=== PATIENT | female | born 1945 | race Caucasian/White ===

== ENCOUNTER 2025-05-07 09:20 | Outpatient (CLI) | payer MEDICARE, MEDICAID, SELFPAY ==
[2025-05-07 09:35] LABS: Coronavirus 19, PCR Not Detected (NotDetected); Influenza A, PCR Not Detected (NotDetected); Influenza B, PCR Not Detected (NotDetected)
== END 2025-05-07 23:59 | disposition home or self-care (01) ==
LOC: LAB 09:21
PROVIDERS: PCP Family Medicine; Visit Provider Nurse Practitioner Family
DX: R05.2 Subacute cough (principal)
CPT/HCPCS: 87631

== ENCOUNTER 2025-05-13 10:52 | Outpatient (CLI) | payer MEDICARE, MEDICAID, SELFPAY ==
--- NOTE | 2025-05-13 10:57 | XR_ITS ---
FINAL REPORT TECHNIQUE: 3 views right foot CLINICAL HISTORY: right 5th metatarsal fx COMPARISON: None FINDINGS: RIGHT FOOT: Three views show no gross acute bony abnormality. There is severe osteopenia noted. Mild diffuse degenerative changes noted. IMPRESSION: No gross acute bony abnormality, although exam is markedly limited by severe osteopenia. If clinical suspicion is high for fracture, recommend MRI for further evaluation. Reviewed, Interpreted and Dictated by Cydney Law MD Transcribed by Tressa Dove Authenticated and [facility]
--- OUTSIDE RECORDS SUMMARY | 2025-05-13 11:09 | XMS_ITS | Clinical Summary ---
Author Organization [facility] Address [address] [place] [address] [address] [place] [address] Phone Care Team Providers Care Agency Trainer Name Role Phone Unavailable Unavailable Conditions or Problems No information available. Medications No information available. Medications Administered No information available. Allergies, Adverse Reactions, Alerts No information available. Results No information available. Plan of Care No information available. Procedures No information available. Vital Signs No information available. Immunizations No information available. Advance Directives No information available.
== END 2025-05-13 23:59 | disposition home or self-care (01) ==
LOC: RAD 10:55
PROVIDERS: PCP Family Medicine; Visit Provider Physician Assistant Surgical
DX: M85.871 Other specified disorders of bone density and structure, right ankle and foot (principal); M19.071 Primary osteoarthritis, right ankle and foot
CPT/HCPCS: 73630

== ENCOUNTER 2025-05-19 15:29 | Emergency (ER) | payer MEDICARE, MEDICAID, SELFPAY ==
[2025-05-19 15:16] VITALS: BP 130/80; PULSE 74; RESP 15; TEMP 36.7; O2SAT 96; BMI 23.7
--- NOTE | 2025-05-19 15:36 | HMH.EDGENADL ---
Discharge Plan Disposition Patient Disposition: Home, Self-Care Prescriptions Prescriptions: No Action trazodone 50 mg tablet 25 mg PO DAILY levetiracetam [Keppra] 500 mg tablet 500 mg PO BID olanzapine 5 mg tablet 5 mg PO BID olanzapine 2.5 mg tablet 2.5 mg PO BID PRN pyridoxine (vitamin B6) 100 mg tablet 100 mg PO DAILY polyethylene glycol 3350 [Miralax] 17 gram/dose powder 17 g PO DAILY nifedipine 60 mg tablet extended release 60 mg PO DAILY sertraline [Zoloft] 50 mg tablet 50 mg PO DAILY apixaban 5 mg tablet 5 mg PO BID magnesium oxide 400 mg magnesium tablet 400 mg PO DAILY Referrals Follow up/Referrals: Jamal Wolfe MD [Primary Care Provider, Family Practice] - See instructions Activity Restrictions/Add. Instructions Additional Instructions/Restrictions: No evidence of any injury therefore no emergent workup was indicated today. Please return with any significant worsening of your symptoms or other development of pain etc. Clinical Impressions Clinical Impression: Encounter for medical screening examination Print Language Print Language: Dutch Discharge ED Provider: Trevin Hubbard General Adult HPI General Chief complaint: Fall Stated complaint: fall Time Seen by Provider: 05/19/25 15:29 Mode of Arrival: EMS Source of Information: EMS Description of Symptoms (Recalled from ER Triage Doc. by RN): patient states she had a unwitnessed fall at halfway, she reports she did not hit her head denies LOC. she landed on the floor after tripping due to to trying to get out of bed. patient reports pain in her left calf. on eliquis History of Present Illness HPI narrative: Patient is an 80-year-old female presenting from halfway after an unwitnessed fall. She states that she had a bowel movement and needed to try to clean it up and was calling for help and there was no help within an hour so she tried to do it herself at which point she slipped and fell into the side of the bed. She denies any injury she states she did not hit her head or her neck she has no pain from the fall. She states that she did not feel that she needed to come here but that the halfway was overly conscientious and wanted her to get checked out. She is on Eliquis for atrial fibrillation. Related Data Home Medications ?Medication ?Instructions ?Recorded ?Confirmed apixaban 5 mg tablet 5 mg PO BID 03/25/25 05/13/25 levetiracetam 500 mg tablet 500 mg PO BID 03/25/25 05/13/25 (Keppra) magnesium oxide 400 mg PO DAILY 03/25/25 05/13/25 nifedipine 60 mg tablet,extended 60 mg PO DAILY 03/25/25 05/13/25 release olanzapine 2.5 mg tablet 2.5 mg PO BID PRN 03/25/25 05/13/25 olanzapine 5 mg tablet 5 mg PO BID 03/25/25 05/13/25 polyethylene glycol 3350 17 17 g PO DAILY 03/25/25 05/13/25 gram/dose oral powder (Miralax) pyridoxine (vitamin B6) 100 mg 100 mg PO DAILY 03/25/25 05/13/25 tablet sertraline 50 mg tablet (Zoloft) 50 mg PO DAILY 03/25/25 05/13/25 trazodone 50 mg tablet 25 mg PO DAILY 03/25/25 05/13/25 Allergies Allergy/AdvReac Type Severity Reaction Status Date / Time No Allergy Information Allergy Mild no known Verified 05/13/25 11:57 Available [facility] Disclaimer: The information contained in this section may have been updated after the patient was seen, as this information can be updated by other users. Medical History Atrial fibrillation Subarachnoid hemorrhage Hypomagnesemia Hx MRSA infection Anemia Hypothyroid Moderate protein-calorie malnutrition Constipation Insomnia Seizure disorder Behavior disturbance HTN (hypertension) Dementia Surgical History History of total right hip arthroplasty Social History Smoking Status: Never smoker alcohol intake: never current occupational status: retired Travel in the last 8 weeks?: None Have you lived/traveled outside US in past 30 days?: No Contact w/someone who lives/traveled outside US past 30 days?: No Exposure to someone with infectious disease in past 14 days?: No Do you have a fever (greater than 100.4 F or 38 C)?: No Have you tested positive for COVID-19?: No Exposed to someone with COVID-19 in past 14 days?: No Do you have a sore throat?: No Do you have a cough?: No Do you have any weakness?: No Do you have any diarrhea?: No Are you experiencing any unusual bleeding?: No Do you have any muscle aches/pain?: No Do you have any abdominal pain?: No Are you experiencing loss of taste or smell?: No Other Medical History Have you received the Pneumonia Vaccine: Yes ROS Obtained: Yes All systems reviewed & no additional complaints except as documented Physical Exam General General appearance: alert and in no apparent distress Head Head exam: atraumatic Neck Neck exam: Absent tenderness Chest Chest inspection: Present normal inspection; Absent tenderness Respiratory Respiratory exam: Present normal lung sounds bilaterally; Absent respiratory distress Cardiovascular Cardiovascular exam: Present regular rate and normal rhythm Abdominal Exam Abdominal exam: Present soft; Absent distention or tenderness Extremities Exam Extremities exam: Present other (Chest abdomen pelvis all long bones palpated without any significant tenderness) Neurological Exam Neurological exam: Present alert and other (Well articulate without any focal neurologic abnormalities) Medical Decision Making Medical Records Screening: Per USPSTF and CDC recommendations, given the prevalence of disease in our region, it is our hospital?s policy to screen for HIV and viral Hepatitis for all patients aged 18 and over and those with ongoing risk factors. Arturo Inquiry Pt receiving controlled substance: No Vital Signs: 05/19/25 15:16 Temperature 98.0 F Temperature Source Oral Pulse Rate [Right Radial] 74 Respiratory Rate 15 Blood Pressure [Right Arm] 130/80 Blood Pressure Mean [Right Arm] 96 Blood Pressure Source [Right Arm] Automatic Cuff Blood Pressure Position [Right Arm] Supine 02 Sat by Pulse Oximetry 96 Oxygen Delivery Method Room Air Orders (Tests/Meds): ORDERS Category Date Time Status HIV Combo Stat Lab 05/19/25 15:29 Ordered Hepatitis C Ab Qual. W/ RFX Stat Lab 05/19/25 15:29 Ordered Medical Decision Narrative: 80-year-old history of atrial fibrillation on Eliquis presenting today after a fall from a halfway. From historical standpoint according to the patient she actually had no injuries from this fall states that she just fell onto the side of the bed did not hit her head or any significant traumatic impact. No evidence of any trauma from a physical exam standpoint either. No indication for any CT imaging of the head neck chest abdomen pelvis or long bones at this point. She will need to be observed and if any worsening symptoms such as changes in mental status etc. develop she could return. She does not want to be in the emergency department understands the risks and benefits associated with not doing a significant workup and agrees with no workup at the moment. Critical Care Critical Care Time Critical Care Time: No
--- NOTE | 2025-05-19 15:45 | PC.NURSE ---
[facility] notified of transfer back to [facility]
--- OUTSIDE RECORDS SUMMARY | 2025-05-19 16:24 | XMS_ITS | Clinical Summary ---
Author Organization [facility] Address [address] [place] [address] [address] [place] [address] Phone Care Team Providers Care Train Operations Manager Name Role Phone Unavailable Unavailable Conditions or Problems No information available. Medications No information available. Medications Administered No information available. Allergies, Adverse Reactions, Alerts No information available. Results No information available. Plan of Care No information available. Procedures No information available. Vital Signs No information available. Immunizations No information available. Advance Directives No information available.
[2025-05-19 16:56] VITALS: BP 134/94; PULSE 71; RESP 16; TEMP 36.6; O2SAT 95
== END 2025-05-19 17:13 | disposition home or self-care (01) ==
PROVIDERS: Emergency Provider Student in an Organized Health Care Education/Training Program; PCP Family Medicine
DX: Z04.3 Encounter for examination and observation following other accident (principal)
CPT/HCPCS: 99283

== ENCOUNTER 2025-05-21 09:04 | Outpatient (CLI) | payer MEDICARE, MEDICAID, SELFPAY ==
--- OUTSIDE RECORDS SUMMARY | 2025-05-21 09:08 | XMS_ITS | Clinical Summary ---
Author Organization [facility] Address [address] [place] [address] [address] [place] [address] Phone Care Team Providers Care Military Technology Manager Name Role Phone Unavailable Unavailable Conditions or Problems No information available. Medications No information available. Medications Administered No information available. Allergies, Adverse Reactions, Alerts No information available. Results No information available. Plan of Care No information available. Procedures No information available. Vital Signs No information available. Immunizations No information available. Advance Directives No information available.
[2025-05-21 09:45] LABS: Valproic Acid, (Depakene) 19.7 ug/ml (50-100)
== END 2025-05-21 23:59 | disposition home or self-care (01) ==
LOC: LAB.DROPOF 09:04
PROVIDERS: PCP Family Medicine; Visit Provider Nurse Practitioner Family
DX: G40.909 Epilepsy, unspecified, not intractable, without status epilepticus (principal)
CPT/HCPCS: 36415; 80164

== ENCOUNTER 2025-05-21 11:05 | Emergency (ER) | payer MEDICARE, MEDICAID, SELFPAY ==
[2025-05-21] VITALS (11 sets, daily range): BP systolic 112–166; BP diastolic 61–139; PULSE 66–75; RESP 19; TEMP 36.5–36.7; O2SAT 96–99; BMI 24.7
--- NOTE | 2025-05-21 11:06 | CT_ITS ---
FINAL REPORT TECHNIQUE: Multiple axial CT images were performed from the foramen magnum to the vertex without enhancement. This study was performed with techniques to keep radiation doses as low as reasonably achievable (ALARA). Individualized dose reduction techniques using automated exposure control or adjustment of mA and/or kV according to the patient's size were employed. CLINICAL HISTORY: Fall, on Eliquis, head trauma COMPARISON: None FINDINGS: There are moderately advanced changes of atrophy with proportional ventriculomegaly. There is periventricular white matter change likely related to small vessel disease. There are foci of encephalomalacia in the left posterior temporal/occipital lobe and the right posterior parietal lobe consistent with remote infarcts. There is no evidence of hemorrhage. No masses are identified. No extra-axial fluid is seen. The sinuses are normal. No evidence of fracture is seen. IMPRESSION: Atrophy and chronic changes without acute process. Reviewed, Interpreted and Dictated by Prakash Nava MD Transcribed by Tressa Dove Authenticated and [facility]
--- NOTE | 2025-05-21 11:06 | CT_ITS ---
FINAL REPORT TECHNIQUE: Axial images were obtained of the cervical spine by computed tomography. Coronal and sagittal reconstruction process performed. This study was performed with techniques to keep radiation doses as low as reasonably achievable (ALARA). Individualized dose reduction techniques using automated exposure control or adjustment of mA and/or kV according to the patient''s size were employed. CLINICAL HISTORY: Fall, head trauma COMPARISON: None FINDINGS: CT CERVICAL SPINE: There are advanced degenerative changes with disc space narrowing at the C4-5, C5-6, and C6-7 levels. There is mild reversal of the normal cervical lordosis. C2-3: Unremarkable C3-4: Unremarkable C4-5: There is endplate hypertrophy eccentric to the left, with moderate to severe bilateral neural foraminal narrowing. C5-6: Endplate hypertrophy is present with moderate bilateral neural foraminal narrowing. C6-7: Endplate hypertrophy is present with mild right neural foraminal narrowing. C7-T1: Unremarkable IMPRESSION: Advanced degenerative changes in the mid cervical spine as described, without acute osseous abnormality. Reviewed, Interpreted and Dictated by Prakash Nava MD Transcribed by Tressa Dove Authenticated and [facility]
--- NOTE | 2025-05-21 11:08 | HMH.EDGENADL ---
Discharge Plan Disposition Patient Disposition: Home, Self-Care Prescriptions Prescriptions: No Action trazodone 50 mg tablet 25 mg PO DAILY levetiracetam [Keppra] 500 mg tablet 500 mg PO BID olanzapine 5 mg tablet 5 mg PO BID olanzapine 2.5 mg tablet 2.5 mg PO BID PRN pyridoxine (vitamin B6) 100 mg tablet 100 mg PO DAILY polyethylene glycol 3350 [Miralax] 17 gram/dose powder 17 g PO DAILY nifedipine 60 mg tablet extended release 60 mg PO DAILY sertraline [Zoloft] 50 mg tablet 50 mg PO DAILY apixaban 5 mg tablet 5 mg PO BID magnesium oxide 400 mg magnesium tablet 400 mg PO DAILY Referrals Follow up/Referrals: Jamal Wolfe MD [Primary Care Provider, Family Practice] - See instructions Activity Restrictions/Add. Instructions Additional Instructions/Restrictions: If you develop any new or worsening symptoms, or if you become concerned for your health for any reason, return to the emergency department for evaluation. I encourage you to take Tylenol to help with your symptoms. Clinical Impressions Clinical Impression: Fall, Hematoma of occipital region of scalp Print Language Print Language: Kittitian Discharge ED Provider: Donal Holguin General Adult HPI General Chief complaint: Fall Stated complaint: Fall Time Seen by Provider: 05/21/25 11:06 Mode of Arrival: EMS Source of Information: Patient and EMS Description of Symptoms (Recalled from ER Triage Doc. by RN): pt from [facility] for fall. arrival via EMS. pt reports pain in head at this time. no other complaints. pt reports that she was attempting to get out of bed and had a fall. History of Present Illness HPI narrative: Shea Magdaleno is an 80-year-old female with a past medical history of dementia, hypertension, atrial fibrillation on Eliquis who presents to the emergency department via EMS. Patient states that she had been lying in bed for some time and wanted to get up to get in contact with somebody and ended up falling and hitting the back of her head. She denies any loss of consciousness. She states that she was able to get up afterwards. She complains of some swelling to the back of her head but denies any neck pain, back pain, blurry vision, chest pain or shortness of breath. Patient was placed in c-collar by EMS. Related Data Home Medications ?Medication ?Instructions ?Recorded ?Confirmed apixaban 5 mg tablet 5 mg PO BID 03/25/25 05/13/25 levetiracetam 500 mg tablet 500 mg PO BID 03/25/25 05/13/25 (Keppra) magnesium oxide 400 mg PO DAILY 03/25/25 05/13/25 nifedipine 60 mg tablet,extended 60 mg PO DAILY 03/25/25 05/13/25 release olanzapine 2.5 mg tablet 2.5 mg PO BID PRN 03/25/25 05/13/25 olanzapine 5 mg tablet 5 mg PO BID 03/25/25 05/13/25 polyethylene glycol 3350 17 17 g PO DAILY 03/25/25 05/13/25 gram/dose oral powder (Miralax) pyridoxine (vitamin B6) 100 mg 100 mg PO DAILY 03/25/25 05/13/25 tablet sertraline 50 mg tablet (Zoloft) 50 mg PO DAILY 03/25/25 05/13/25 trazodone 50 mg tablet 25 mg PO DAILY 03/25/25 05/13/25 Allergies Allergy/AdvReac Type Severity Reaction Status Date / Time No Allergy Information Allergy Mild no known Verified 05/13/25 11:57 Available [facility] Disclaimer: The information contained in this section may have been updated after the patient was seen, as this information can be updated by other users. Medical History Atrial fibrillation Subarachnoid hemorrhage Hypomagnesemia Hx MRSA infection Anemia Hypothyroid Moderate protein-calorie malnutrition Constipation Insomnia Seizure disorder Behavior disturbance HTN (hypertension) Dementia Surgical History History of total right hip arthroplasty Social History Smoking Status: Former smoker alcohol intake: never current occupational status: retired Travel in the last 8 weeks?: None Have you lived/traveled outside US in past 30 days?: No Contact w/someone who lives/traveled outside US past 30 days?: No Exposure to someone with infectious disease in past 14 days?: No Do you have a fever (greater than 100.4 F or 38 C)?: No Have you tested positive for COVID-19?: No Exposed to someone with COVID-19 in past 14 days?: No Do you have a sore throat?: No Do you have a cough?: No Do you have any weakness?: No Do you have any diarrhea?: No Are you experiencing any unusual bleeding?: No Do you have any muscle aches/pain?: No Do you have any abdominal pain?: No Are you experiencing loss of taste or smell?: No Other Medical History Have you received the Pneumonia Vaccine: Yes ROS Obtained: Yes Systems reviewed as appropriate & no additional complaints except as documented Physical Exam General General appearance: alert and in no apparent distress Head Head exam: other (Hematoma to scalp on the right occipital area) Eye Eye exam: Present normal appearance ENT ENT exam: Present normal external ear exam Neck Neck exam: Present full ROM; Absent tenderness Chest Chest inspection: Present symmetric chest wall rise Respiratory Respiratory exam: Present normal lung sounds bilaterally; Absent respiratory distress, wheezes or stridor Cardiovascular Cardiovascular exam: Present regular rate and normal rhythm Abdominal Exam Abdominal exam: Present soft; Absent tenderness or guarding Extremities Exam Extremities exam: Present normal inspection Back Exam Back exam: Present normal inspection; Absent vertebral tenderness (No C/T/L-spine tenderness or step-offs) Neurological Exam Neurological exam: Present alert and oriented X3 Psychiatric Psychiatric exam: Present normal affect Skin Skin exam: Present warm and dry Medical Decision Making Medical Records Screening: Per USPSTF and CDC recommendations, given the prevalence of disease in our region, it is our hospital?s policy to screen for HIV and viral Hepatitis for all patients aged 18 and over and those with ongoing risk factors. Arturo Inquiry Pt receiving controlled substance: No Vital Signs: 05/21/25 11:00 05/21/25 11:04 05/21/25 11:05 Temperature 98.0 F Temperature Source Oral Pulse Rate 69 68 Pulse Rate [Left Radial] 66 Respiratory Rate 19 Blood Pressure 145/84 H 143/74 H Blood Pressure [Right Arm] 145/84 H Blood Pressure Mean Blood Pressure Mean [Right Arm] 104 02 Sat by Pulse Oximetry 97 96 97 Oxygen Delivery Method Room Air Room Air 05/21/25 11:08 05/21/25 11:30 05/21/25 11:58 Temperature Temperature Source Pulse Rate 66 69 Pulse Rate [Left Radial] Respiratory Rate Blood Pressure 133/71 138/74 Blood Pressure [Right Arm] Blood Pressure Mean Blood Pressure Mean [Right Arm] 02 Sat by Pulse Oximetry 98 96 96 Oxygen Delivery Method Room Air Room Air Room Air 05/21/25 12:30 Temperature Temperature Source Pulse Rate 68 Pulse Rate [Left Radial] Respiratory Rate Blood Pressure 149/73 H Blood Pressure [Right Arm] Blood Pressure Mean 104 Blood Pressure Mean [Right Arm] 02 Sat by Pulse Oximetry 96 Oxygen Delivery Method Room Air Orders (Tests/Meds): ED MEDICATIONS Discontinued Medications Generic Name Dose Route Start Last Admin Trade Name Bharti PRN Reason Stop Dose Admin Acetaminophen 1,000 mg 05/21/25 11:07 05/21/25 11:30 Acetaminophen 500mg Tab PO 05/21/25 11:08 1,000 mg ONCE ONE Administration ORDERS Category Date Time Status CT cervical spine wo con Stat Cat Scan 05/21/25 11:[address] head/brain wo con Stat Cat Scan 05/21/25 11:06 Completed Medical Decision Narrative: Shea Magdaleno is an 80-year-old female with a past medical history of dementia, hypertension, seizure on Depakote with Depakote level obtained today of 19.7, atrial fibrillation on Eliquis who presents to the emergency department via EMS. Patient states that she had been lying in bed for some time and wanted to get up to get in contact with somebody and ended up falling and hitting the back of her head. She denies any loss of consciousness. She states that she was able to get up afterwards. She complains of some swelling to the back of her head but denies any neck pain, back pain, blurry vision, chest pain or shortness of breath. Patient was placed in c-collar by EMS. On arrival, patient is mildly hypertensive with blood pressure 145/84, heart rate within normal notes, breathing comfortably on room air with oxygen saturation 97% SpO2. Physical exam, as stated above, revealed overall well-appearing female who is alert and answering questions appropriately. She has a hematoma to the posterior right occiput without skull fracture or deformity. Pupils equal round reactive to light. No focal neurological deficit. No midline C/T/L-spine tenderness. No abdominal tenderness. No injuries to the extremities. Differential diagnosis includes, but is not limited to: Intracranial hemorrhage, skull fracture, cervical spine fracture. patient is noted to have frequent falls and this fall appears more mechanical in nature. Lab work was considered but is not indicated at this time. Will obtain CT imaging of the head and C-spine without contrast. CT imaging was interpreted by me personally. No intracranial hemorrhage, mass or midline shift. No cervical spine fracture or malalignment. See final radiology report for details. On reassessment, patient remained stable. She has no additional complaints at this time. Her workup today is negative for any acute pathology. I feel that she is safe for discharge back to her intermediate. Return precautions were given. All questions were answered. She was discharged in stable condition Critical Care Critical Care Time Critical Care Time: No
--- OUTSIDE RECORDS SUMMARY | 2025-05-21 11:20 | XMS_ITS | Clinical Summary ---
Author Organization [facility] Address [address] [place] [address] [address] [place] [address] Phone Care Team Providers Care [employer] Founder Name Role Phone Unavailable Unavailable Conditions or Problems No information available. Medications No information available. Medications Administered No information available. Allergies, Adverse Reactions, Alerts No information available. Results No information available. Plan of Care No information available. Procedures No information available. Vital Signs No information available. Immunizations No information available. Advance Directives No information available.
[2025-05-21] MEDS: ACETAMINOPHEN 500MG TAB 1000 MG PO (11:30)
--- NOTE | 2025-05-21 11:32 | PC.NURSE ---
ROUNDED ON THE PT. SHE WAS PLACED ON A PURE WICK. NO NEW COMPLAINTS. NO NEEDS VOICED. CALL BUCK IN REACH.
--- NOTE | 2025-05-21 12:13 | PC.NURSE ---
c collar removed per md verbal order
== END 2025-05-21 13:19 | disposition home or self-care (01) ==
PROVIDERS: Emergency Provider Student in an Organized Health Care Education/Training Program; PCP Family Medicine
DX: S00.03XA Contusion of scalp, initial encounter (principal); I10 Essential (primary) hypertension; I48.0 Paroxysmal atrial fibrillation; Z79.01 Long term (current) use of anticoagulants; Z87.891 Personal history of nicotine dependence; W06.XXXA Fall from bed, initial encounter
CPT/HCPCS: 70450; 72125; 99285

== ENCOUNTER 2025-06-03 08:11 | Outpatient (CLI) | payer MEDICARE, MEDICAID, SELFPAY ==
--- OUTSIDE RECORDS SUMMARY | 2025-06-03 08:13 | XMS_ITS | Clinical Summary ---
Author Organization [facility] Address [address] [place] [address] [address] [place] [address] Phone Care Team Providers Care Ripsaw Grader Name Role Phone Unavailable Unavailable Conditions or Problems No information available. Medications No information available. Medications Administered No information available. Allergies, Adverse Reactions, Alerts No information available. Results No information available. Plan of Care No information available. Procedures No information available. Vital Signs No information available. Immunizations No information available. Advance Directives No information available.
--- NOTE | 2025-06-03 08:14 | XR_ITS ---
FINAL REPORT CLINICAL HISTORY: right foot fx FINDINGS: RIGHT FOOT Three views were obtained. There is no fracture or dislocation. The joint spaces appear normal. The bones are osteopenic. No soft tissue abnormality is identified. IMPRESSION: No acute process. Reviewed, Interpreted and Dictated by Prakash Nava MD Transcribed by Melva Dunne Authenticated and [facility]
== END 2025-06-03 23:59 | disposition home or self-care (01) ==
LOC: RAD 08:12
PROVIDERS: PCP Family Medicine; Visit Provider Physician Assistant Surgical
DX: S92.351A Displaced fracture of fifth metatarsal bone, right foot, initial encounter for closed fracture (principal)
CPT/HCPCS: 73630

== ENCOUNTER 2025-06-11 10:28 | Outpatient (CLI) | payer MEDICARE, MEDICAID, SELFPAY ==
[2025-06-11 10:47] LABS: Microscopic, Urine URINE MICROSCOPIC (MICROSCOPIC)
[2025-06-11 10:59] LABS: Bilirubin,Urine Negative (Negative); Color,Urine YELLOW (Yellow); Glucose,Urine (UA) Negative (Negative); Ketones,Urine Negative (Negative); Leukocyte Esterase,Urine Negative (Negative); PH,Urine 6.0 (5.0-8.5); Protein,Urine Negative (Negative); Specific Gravity, Urine 1.020 (1.005-1.030); Urobilinogen,Urine 0.2 EU/dl (0.2)
[2025-06-11 11:21] LABS: Bacteria,Urine 2+ /lpf; WBC,Urine Occasional #/hpf (0-3)
== END 2025-06-11 23:59 | disposition home or self-care (01) ==
LOC: LAB.DROPOF 10:33
PROVIDERS: PCP Family Medicine; Visit Provider Family Medicine
DX: N39.0 Urinary tract infection, site not specified (principal)
CPT/HCPCS: 81001; 87086; 87088; 87186